=== PATIENT | female | born 1970 | race Caucasian/White ===

== ENCOUNTER 2020-03-06 15:18 | Outpatient (REF) | payer MEDICAID, SELFPAY | END 2020-03-06 15:19 | disposition home or self-care (01) | LOC: HO.LAB 15:18 | PROVIDERS: Visit Provider Internal Medicine | DX: Z20.822 Contact with and (suspected) exposure to COVID-19 (principal) | CPT/HCPCS: 36415; C9803; U0003 ==

== ENCOUNTER 2022-01-20 11:39 | Outpatient (REF) | payer MEDICAID, SELFPAY ==
--- NOTE | ~2022-01-20 | MM_ITS ---
EXAMINATION: MM SCREENING DIGITAL BREAST TOMOSYNTHESIS, BILATERAL CLINICAL INFORMATION: Screening. Asymptomatic. The lifetime risk of breast cancer based on the Tyrer-Cuzick Model is 17%. COMPARISON: Mammography: 11/23/2017, 11/13/2016 TECHNIQUE: Digital breast tomosynthesis is performed in both the craniocaudal and mediolateral oblique views along with computer-aided detection (CAD). Synthesized 2D images are generated from the tomosynthesis. FINDINGS: The breasts are extremely dense, which lowers the sensitivity of mammography (ACR BI-RADS breast composition Category d). There are no significant masses, abnormal calcifications, or other abnormalities. Parenchymal pattern is similar to prior studies. No architectural abnormality. There are multiple bilateral scattered round calcifications similar in distribution. The axilla and skin contours are unremarkable. No significant changes from prior exam. MM/MM tomosynthesis screening BI IMPRESSION: No mammographic evidence of malignancy. ASSESSMENT: BI-RADS 2: Benign RECOMMENDATION: Routine annual mammography screening. This patient's information was entered into a reminder system with a target due date for their next mammogram.
== END 2022-01-20 11:40 | disposition home or self-care (01) ==
LOC: HO.MAMMO 11:39
PROVIDERS: PCP Internal Medicine; Visit Provider Internal Medicine
DX: Z12.31 Encounter for screening mammogram for malignant neoplasm of breast (principal)
CPT/HCPCS: 77063; 77067

== ENCOUNTER → 2022-07-23 10:08 | Outpatient (BNVA) | payer MEDICAID, SELFPAY | PROVIDERS: PCP Internal Medicine; Visit Provider Physician Assistant | DX: Z12.11 Encounter for screening for malignant neoplasm of colon (principal) | CPT/HCPCS: 99202 ==

== ENCOUNTER → 2023-01-29 08:15 | Outpatient (BNV) | payer MEDICAID, SELFPAY | PROVIDERS: PCP Internal Medicine; Visit Provider Radiology Diagnostic Radiology | DX: Z12.31 Encounter for screening mammogram for malignant neoplasm of breast (principal) | CPT/HCPCS: 77063; 77067 ==

== ENCOUNTER 2023-01-29 08:30 | Outpatient (REF) | payer MEDICAID, SELFPAY ==
--- NOTE | ~2023-01-29 | MM_ITS ---
EXAMINATION: MM SCREENING DIGITAL BREAST TOMOSYNTHESIS, BILATERAL CLINICAL INFORMATION: Screening. Asymptomatic. COMPARISON: Mammography: This study is compared with prior exams dating back to 2018. TECHNIQUE: Digital breast tomosynthesis is performed in both the craniocaudal and mediolateral oblique views along with computer-aided detection (CAD). Synthesized 2D images are generated from the tomosynthesis. FINDINGS: The breasts are heterogeneously dense, which may obscure small masses (ACR BI-RADS breast composition Category c). There are no significant masses, abnormal calcifications, or other abnormalities. Bilateral benign calcifications are present. MM/MM tomosynthesis screening BI IMPRESSION: No mammographic evidence of malignancy. ASSESSMENT: BI-RADS BI-RADS 2 - Benign Findings RECOMMENDATION: Routine annual mammography screening. 1 year F/U This examination should not preclude the clinical evaluation of a suspicious palpable abnormality. This patient's information was entered into a reminder system with a target due date for their next mammogram.
== END 2023-01-29 08:31 | disposition home or self-care (01) ==
LOC: HO.MAMMO 08:30
PROVIDERS: PCP Internal Medicine; Visit Provider Internal Medicine
DX: Z12.31 Encounter for screening mammogram for malignant neoplasm of breast (principal)
CPT/HCPCS: 77063; 77067

== ENCOUNTER 2023-02-10 11:21 | Outpatient (REF) | payer MEDICAID, SELFPAY ==
[2023-02-10 13:45] LABS: MANUAL DIFF FLAG NO
[2023-02-10 13:53] LABS: Basophils Absolute Auto 0.1 X10*3/uL (0.0-0.2); Basophils Percent Auto 0.9 % (0-2); Eosinophils Absolute Auto 0.1 X10*3/uL (0.0-0.4); Eosinophils Percent Auto 1.1 % (0-4); Hematocrit 39.8 % (37.0-47.0); Hemoglobin 12.4 g/dl (12.0-16.0); Imm Gran Abs Auto 0.02 X10*3/uL (0.00-0.03); Imm Gran Pct Auto 0.4 % (0.0-0.4); Lymphocytes Absolute Auto 1.7 X10*3/uL (1.2-4.9); Lymphocytes Percent Auto 31.6 % (20-40); Mean Corpuscular HGB Conc 31.2 g/dl (31.0-35.0); Mean Corpuscular Volume 77.1 fL (80.0-98.0); Mean Platelet Volume 12.7 fL (9.4-12.3); Monocytes Absolute Auto 0.4 X10*3/uL (0.1-1.2); Monocytes Percent Auto 6.9 % (2-11); Neutrophils Absolute Auto 3.2 x10*3/uL (2.0-8.3); Neutrophils Percent Auto 59.1 % (45-73); Platelet Count 248 X10*3/uL (160-400); Red Blood Count 5.16 X10*6/uL (4.20-5.50); Red Cell Distribution Width 17.5 % (11.0-16.0); White Blood Count 5.5 X10*3/uL (4.8-10.8)
[2023-02-10 16:18] LABS: Cholesterol 200 mg/dL (<200); HDL Cholesterol 53 mg/dL (>40); LDL Cholesterol Calculated 129 mg/dL (<100); Triglycerides 94 mg/dL (<150)
[2023-02-10 16:55] LABS: Anion Gap 15 (12-20); Blood Urea Nitrogen 13 mg/dL (9-16); Calcium 9.6 mg/dL (8.4-10.2); Carbon Dioxide 24 mmol/L (22-29); Chloride 107 mmol/L (96-108); Estimated Glomerular Filt Rate > 60; Glucose Random 110 mg/dL (60-115); Potassium 4.8 mmol/L (3.3-5.1); Sodium 141 mmol/L (135-145)
[2023-02-10 17:02] LABS: Ferritin 29 ng/mL (10-250); TSH reflex Free T4 1.17 uIU/mL (0.32-4.0); Vitamin D 25-OH Total 12.9 ng/mL (>30)
[2023-02-10 18:11] LABS: Reflex LDLD? No
== END 2023-02-10 11:22 | disposition home or self-care (01) ==
LOC: HO.HHCL 11:21
PROVIDERS: Visit Provider Internal Medicine
DX: N93.8 Other specified abnormal uterine and vaginal bleeding (principal); R03.0 Elevated blood-pressure reading, without diagnosis of hypertension
CPT/HCPCS: 36415; 80048; 80061; 82306; 82728; 84443; 85025

== ENCOUNTER 2023-02-17 11:34 | Outpatient (REF) | payer MEDICAID, SELFPAY | END 2023-02-17 11:35 | disposition home or self-care (01) | LOC: HO.MAMMO 11:34 | PROVIDERS: PCP Internal Medicine; Visit Provider Internal Medicine | DX: R92.8 Other abnormal and inconclusive findings on diagnostic imaging of breast (principal) | CPT/HCPCS: 76641 ==

== ENCOUNTER → 2023-02-17 12:00 | Outpatient (BNV) | payer MEDICAID, SELFPAY | PROVIDERS: PCP Internal Medicine; Visit Provider Radiology Diagnostic Radiology | DX: R92.8 Other abnormal and inconclusive findings on diagnostic imaging of breast (principal) | CPT/HCPCS: 76641 ==

== ENCOUNTER 2023-03-12 08:24 | Day surgery (SDC) | payer MEDICAID, SELFPAY ==
[2023-03-10 14:15] VITALS: BMI 29.7
--- NOTE | 2023-03-11 12:14 | P.CONAN_ITS ---
Documented by User: aMgnolia Morillo NP 03/11/23 12:15 HPI - Anesthesia Eval Consult details Narrative: 53yo F for Colonoscopy No PMHx by GI provider [facility] Active Problems Active Problems: All Active Problems (Updated 07/23/22 @ 10:56 by Nellie Briceno PA-C) Encounter for screening colonoscopy (Acute) Family History Family History Mother Breast CA HTN (hypertension) Social History Social History Household Members: Family Alcohol intake: current Alcohol intake frequency: holidays/special occasions only Patient Tobacco Use Status: Current everyday Tobacco user Advance Directives: No Advance Directives Information Provided: Yes Meds Allergies Allergy/AdvReac Type Severity Reaction Status Date / Time No Known Allergies Allergy Unknown Verified 03/12/23 09:14 Home Medications Medication Instructions Recorded Confirmed Last Taken Type cholecalciferol (vitamin D3) 50 50 mcg PO DAILY 07/16/22 03/12/23 03/11/23 History mcg (2,000 unit) capsule clonazepam 1 mg tablet (Klonopin) 1 mg PO BID 07/16/22 03/12/23 03/11/23 History ibuprofen 600 mg tablet 600 mg PO TID 07/16/22 03/12/23 03/11/23 History lurasidone 120 mg tablet (Latuda) 120 mg PO DAILY 07/16/22 03/12/23 03/11/23 History mirtazapine 15 mg tablet (Remeron) 15 mg PO BEDTIME 07/16/22 03/12/23 03/11/23 History zolpidem 5 mg tablet 5 mg PO BEDTIME PRN Sleep 07/16/22 03/12/23 03/11/23 History Exam Height,Weight and Vital Signs: Height 5 ft 4 in Weight 78.471 kg Pertinent Lab Results Pertinent Lab Results: Laboratory Tests 02/10/23 11:23 Sodium 141 Potassium 4.8 Chloride 107 BUN 13 Creatinine 0.91 Laboratory Tests 02/10/23 11:23 WBC 5.5 Hgb 12.4 Hct 39.8 Plt Count 248 Assessment and Plan Assessment Anesthesia Assessment: Chart Reviewed Documented by User: Yun Webb MD 03/12/23 09:27 PMFSH Family History Family History Mother Breast CA HTN (hypertension) Surgical History History of Problems with Anesthesia: No Social History Social History Household Members: Family Alcohol intake: current Alcohol intake frequency: holidays/special occasions only Patient Tobacco Use Status: Current everyday Tobacco user Advance Directives: No Advance Directives Information Provided: Yes Meds Allergies Allergy/AdvReac Type Severity Reaction Status Date / Time No Known Allergies Allergy Unknown Verified 03/12/23 09:14 Home Medications Medication Instructions Recorded Confirmed Last Taken Type cholecalciferol (vitamin D3) 50 50 mcg PO DAILY 07/16/22 03/12/23 03/11/23 History mcg (2,000 unit) capsule clonazepam 1 mg tablet (Klonopin) 1 mg PO BID 07/16/22 03/12/23 03/11/23 History ibuprofen 600 mg tablet 600 mg PO TID 07/16/22 03/12/23 03/11/23 History lurasidone 120 mg tablet (Latuda) 120 mg PO DAILY 07/16/22 03/12/23 03/11/23 History mirtazapine 15 mg tablet (Remeron) 15 mg PO BEDTIME 07/16/22 03/12/23 03/11/23 History zolpidem 5 mg tablet 5 mg PO BEDTIME PRN Sleep 07/16/22 03/12/23 03/11/23 History Exam Airway Mallampati Class: II TM Dist: >3cm Neck ROM: Full Partial: Upper Loose/Missing/Broken Teeth: Yes and Upper Heart: RRR Lungs: CTA Assessment and Plan Assessment Anesthesia Assessment: Anesthesia Plan Discussed Final Anesthetic Review History of Problems with Anesthesia: No NPO: Yes ASA Class: I Final Preanesthetic Review: Meds/Allgs Chart Reviewed, Consent Obtained/Reviewed and Anes Risks/Benef Reviewed Patient Risk: Low Procedure Risk: Low Anesthetic Plan Anesthetic Plan: MAC: Disposition: Standard PACU
--- NOTE | 2023-03-12 09:04 | MHC.SHP ---
Pre-Procedural Eval Section A Date of Service: 03/12/23 The patient is an INPATIENT: No The History & Physical has been completed within 30 days and I have reviewed it.: No Section B Chief Complaint: Colon cancer screen Relevant Family History (Specify if Yes): No Relevant Social History: Tobacco Use Present Medications: see Short Stay Collaborative assessment Medical History: No relevant PMH History of Previous Operations: No relevant previous surgery Allergies: Allergies Allergy/AdvReac Type Severity Reaction Status Date / Time No Known Allergies Allergy Unknown Verified 07/23/22 10:11 Review of Systems Sugical H&P ROS: Negative: Constitution, Cardiovascular, Respiratory and Gastrointestinal Exam Surgical H&P Exam: Normal: Heart, Normal: Lungs, Normal: Extremities and Normal: Abdomen Plan Diagnosis/Plan: Unchanged I have reviewed the history and physical and performed a pertinent physical examination on my patient. No changes have occurred unless specified. Time Spent With Patient Time: Total time managing care of this patient today ____ minutes.
[2023-03-12 09:20] VITALS: BMI 30.4
[2023-03-12 09:33] VITALS: BP 125/79; PULSE 65; RESP 16; TEMP 36.8; O2SAT 98
[2023-03-12] MEDS: Lactated Ringers 1,000 ML 100 ML IVCONT (09:47)
--- NOTE | 2023-03-12 10:38 | P.OP_ITS ---
Operative Note Operative Note Date of Service: 03/12/23 Narrative: COLONOSCOPY TILL CECUM WITH BIOPSIES Pre-op diagnosis: Colon cancer screening (First colonoscopy) Post-op diagnosis:? Colon polyps, diverticulosis Endoscopist:? Rosa Maria Gross MD Anesthesia:?MAC Consent: Indications for the procedure and potential complications of bleeding, perforation, reaction to medications and missed diagnosis were discussed with the patient and informed consent was obtained. Instrument: Olympus PCF H 190 L variable stiffness pediatric colonoscope Monitoring: Vital signs and clinical assessment, intermittent blood pressure monitoring, continuous EKG monitoring, Pulse oximetry and Carbon Dioxide monitoring were done throughout the procedure. Please see anesthesia flowsheet. Colon withdrawl time was 19 minutes. Procedure: The patient was placed in the left lateral decubitis position and pre-procedure medications were administered. After a digital rectal examination of the ano-rectum, the video colonoscope was inserted into the rectum and advanced through the colon to the cecum. The colonoscope was slowly withdrawn in a retrograde panoramic fashion and the colon mucosa was carefully examined including a retroflexed view of the rectum. Findings and interventions are described below. Procedure Difficulty: Without difficulty Findings: Terminal Ileum: Not evaluated Cecum: Normal Ascending Colon: Normal Transverse Colon: Normal Descending Colon: Normal Sigmoid Colon: A 7-8 mm diminutive appearing polyp - removed with a cold biopsy. Moderate diverticulosis Rectum: A few 3-4 mm diminutive appearing polyps - 1 removed with a cold biopsy Ano-rectum: Normal Colon preparation: Good after some irrigation [place] Bowel Preparation Scale Right colon; 3 Transverse colon: 3 Left colon; 3 (0 = Unprepared colon segment with mucosa not seen due to solid stool that cannot be cleared. 1 = Portion of mucosa of the colon segment seen, but other areas of the colon segment not well seen due to staining, residual stool and/or opaque liquid. 2 = Minor amount of residual staining, small fragments of stool and/or opaque liquid, but mucosa of colon segment seen well. 3 = Entire mucosa of colon segment seen well with no residual staining, small fragments of stool or opaque liquid) Impression and Post Procedure Diagnosis: Colonoscopy Findings: Two small polyps removed Moderate diverticulosis seen in the sigmoid colon Plan: I will send a letter with pathology results Repeat Colonoscopy interval based on path results - in 5 years if polyps are adenomatous and 10 years if polyps are hyperplastic. Above findings were reviewed with the patient and colon polyps and diver ticulosis handouts were given in the discharge area
[2023-03-12 10:40] VITALS: BP 116/62; PULSE 61; RESP 16; TEMP 36.1; O2SAT 100
[2023-03-12 10:55] VITALS: BP 126/71; PULSE 65; RESP 16; TEMP 36.1; O2SAT 98
== END 2023-03-12 11:16 | disposition home or self-care (01) ==
PROVIDERS: PCP Internal Medicine; Visit Provider Internal Medicine Gastroenterology
PROC: 0DJD8ZZ Inspection of Lower Intestinal Tract, Via Natural or Artificial Opening Endoscopic (ICD-10-PCS; CPT 45378; principal; 2023-03-12 10:20)
DX: Z12.11 Encounter for screening for malignant neoplasm of colon (principal); K63.5 Polyp of colon; K62.1 Rectal polyp; K57.30 Diverticulosis of large intestine without perforation or abscess without bleeding; Z79.1 Long term (current) use of non-steroidal anti-inflammatories (NSAID); Z79.899 Other long term (current) drug therapy; F17.210 Nicotine dependence, cigarettes, uncomplicated
CPT/HCPCS: 45380; 88305; J2704

== ENCOUNTER → 2023-03-12 08:24 | Outpatient (BNV) | payer MEDICAID, SELFPAY | PROVIDERS: PCP Internal Medicine; Visit Provider Internal Medicine Gastroenterology | DX: Z12.11 Encounter for screening for malignant neoplasm of colon (principal); K63.5 Polyp of colon; K57.30 Diverticulosis of large intestine without perforation or abscess without bleeding | CPT/HCPCS: 45380 ==

== ENCOUNTER 2023-05-07 18:03 | Outpatient (REF) | payer MEDICAID, SELFPAY ==
[2023-05-08 16:47] LABS: C. trachomatis RNA TMA NOT DETECTED (NOT DETECTED); N. gonorrhoeae RNA TMA NOT DETECTED (NOT DETECTED)
[2023-05-13 05:48] LABS: HPV mRNA E6/E7 rflx Not Detected (Not Detected)
== END 2023-05-07 18:04 | disposition home or self-care (01) ==
LOC: HO.HHCLNP 18:03
PROVIDERS: Visit Provider Internal Medicine
DX: Z01.419 Encounter for gynecological examination (general) (routine) without abnormal findings (principal)
CPT/HCPCS: 36415; 81513; 87491; 87591; 87624; 88142

== ENCOUNTER 2023-06-28 13:02 | Outpatient (REF) | payer MEDICAID, SELFPAY | END 2023-06-28 13:03 | disposition home or self-care (01) | LOC: HO.LNP 13:02 | PROVIDERS: PCP Internal Medicine; Visit Provider Obstetrics & Gynecology | DX: N84.1 Polyp of cervix uteri (principal) | CPT/HCPCS: 57500; 88305; 99202 ==

== ENCOUNTER 2023-06-28 13:02 | Outpatient (AMB) | payer MEDICAID, SELFPAY ==
--- NOTE | 2023-06-28 13:12 | A.OFFVIS_ITS ---
Vital Signs 06/28/23 13:13 Height 5 ft 4 in Weight 176 lb 5.917 oz BMI 30.3 BP 126/82 Intake Visit Reasons: Entry Level Finance, Endocervical Polyp/30 min Fermenter Wine Required: Yes Fermenter Wine Language: Confectionery Maker Name: Alessia MARR Information Interpreted: non-clinical & clinical Management Trainee Program Stores: Management Trainee Program Stores Present (Alessia MARR) Accompanied by: Daughter Allergies No Known Allergies Allergy (Unknown, Verified 06/28/23 13:16) Post menopausal: Yes HPI Comments Details: Presenting referred from PCP regarding endocervical polyp is seen that was identified incidentally on pelvic exam. The patient has no symptoms, no pelvic pain, vaginal bleeding or other concerns. Last co testing done in 05/08 was negative PFSH Family History Mother Breast CA HTN (hypertension) Social History Household Members: Family Alcohol intake: current Alcohol intake frequency: holidays/special occasions only Patient Tobacco Use Status: Never used Tobacco Review of Systems Const All systems reviewed & are unremarkable except as noted in HPI and below Physical Exam Vital Signs: Last Vital Signs BP 126/82 06/28/23 13:13 BMI result Body Mass Index 30.3 General: Yes no CVA tenderness External Female Exam: normal external appearance and normal appearance of the urethra Speculum Exam - Vagina: normal appearance of the vagina, normal palpation, no lesions and no masses Speculum Exam - Cervix: normal appearance of the cervix, normal palpation, no lesions, no masses, nontender and Other cervical findings present (2 cm endocervical polyp) Bimanual exam- vagina & uterus: normal bimanual exam, normal palpation, uterine size normal, normal palpation, uterine shape normal, No Cervical tenderness present and non-tender Bimanual Exam- Adnexa, other: normal adnexae Back/Spine/Pelvis Back: no CVA tenderness Office Procedures INFORMATION SECURITY ASSOCIATE Biopsy Before the procedure was started, discussed with the patient the procedure technique, alternatives & all the risks associated with the procedure including but not limited to: bleeding , infection, uterine perforation, injury to bladder, vessels, bowels, possible need for transfusion with all its risks, and others. All questions were answered, the patient verbalized understanding and signed the consent. Urine test done in the office was negative Using a long Linette Clamp the endocervical polyp was grasped and twisted around till it came off, hemostasis was secured using pressure. The patient tolerated the procedure well. Instructions were given to the patient to call if bleeding, temp>100.4 occur. The patient verbalized understanding and agreed with the plan. This note was generated with a voice recognition program. Some errors may have been overlooked during the review of this note. Sometimes these errors may affect the content or meaning of a given sentence. 61689-Gtcrxm of Cervix Procedure code (CPT) selection complete Assessment & Plan Assessment & Plan (1) Endocervical polyp: Code(s): N84.1 - Polyp of cervix uteri Category: Medical Plan: Discussed with the patient the finding on pelvic exam, endocervical polyp, recommended endocervical polypectomy. Procedure done, see note Orders: Orders AMB INFORMATION SECURITY ASSOCIATE Biopsy Today N84.1 - Polyp of cervix uteri Coding Level of Care Code New Pt Level 3 (26486) Procedure Only Diagnoses Endocervical polyp N84.1 CPT Codes INFORMATION SECURITY ASSOCIATE Biopsy - CPT: 42679-[place] of Cervix ([id number])
[2023-06-28 13:13] VITALS: BP 126/82; BMI 30.3
== END 2023-06-28 13:27 | disposition home or self-care (01) ==
PROVIDERS: PCP Internal Medicine; Visit Provider Obstetrics & Gynecology
DX: N84.1 Polyp of cervix uteri (principal)
CPT/HCPCS: 57500; 99203

== ENCOUNTER 2023-08-11 11:31 | Outpatient (AMB) | payer MEDICAID, SELFPAY ==
--- NOTE | 2023-08-11 11:35 | A.OFFVIS_ITS ---
Vital Signs 08/11/23 11:45 Height 5 ft 4 in Weight 176 lb 5.917 oz BMI 30.3 Intake Visit Reasons: Biopsy follow up Business Analytics Manager Required: Yes Business Analytics Manager Language: Product Builder Services: Business Analytics Manager Present Business Analytics Manager Name: Alessia MARR Information Interpreted: non-clinical & clinical Accompanied by: Daughter Allergies No Known Allergies Allergy (Unknown, Verified 08/11/23 11:45) Post menopausal: Yes HPI Comments Details: The patient is presenting after endocervical polypectomy. The patient has no complaints, no vaginal bleeding, no feverishness chills or abdominal pain. The pathology report showed the following: Endocervix, polypectomy: Inflamed endocervical polyp; no atypia present PFSH Family History Mother Breast CA HTN (hypertension) Social History Household Members: Family Alcohol intake: current Alcohol intake frequency: holidays/special occasions only Patient Tobacco Use Status: Never used Tobacco Review of Systems Const All systems reviewed & are unremarkable except as noted in HPI and below Reports as per HPI and Reports no additional complaints GI Reports no additional complaints Reports no additional complaints Physical Exam Vital Signs: BMI result Body Mass Index 30.3 Assessment & Plan Assessment & Plan (1) Endocervical polyp: Comment: Status post polypectomy Code(s): N84.1 - Polyp of cervix uteri Category: Medical Plan: Discussed with the patient the results the pathology, the patient was reassured. Instructions given the patient to call in case of any future vaginal bleeding will proceed with endometrial sampling. All questions answered, the patient verbalized understanding Coding Level of Care Code Est Pt Level 3 (81068) Diagnoses Endocervical polyp N84.1
[2023-08-11 11:45] VITALS: BMI 30.3
== END 2023-08-11 14:35 | disposition home or self-care (01) ==
LOC: HO.HWS 11:31
PROVIDERS: PCP Internal Medicine; Visit Provider Obstetrics & Gynecology
DX: N84.1 Polyp of cervix uteri (principal)
CPT/HCPCS: 99213

== ENCOUNTER → 2023-08-11 11:31 | Outpatient (BNVA) | payer MEDICAID, SELFPAY | PROVIDERS: PCP Internal Medicine; Visit Provider Obstetrics & Gynecology | DX: N84.1 Polyp of cervix uteri (principal) | CPT/HCPCS: 99212 ==

== ENCOUNTER 2023-08-25 09:38 | Outpatient (REF) | payer MEDICAID, SELFPAY ==
--- NOTE | ~2023-08-25 | US_ITS ---
EXAMINATION: US DIAGNOSTIC ULTRASOUND BREAST, RIGHT CLINICAL INFORMATION: 6 month follow-up probably benign complicated cyst right breast 1:00 axis, 5 cm from the nipple.. COMPARISON: 02/17/2023 right breast ultrasound. TECHNIQUE: Ultrasound of the breast is performed with real-time may scale imaging and color Doppler. FINDINGS: Within the 1:00 axis of the right breast, 5 cm from the nipple, there is a complex cyst or possibly a small mass measuring 1.1 x 0.4 x 0.9 cm, either a benign fibroadenoma or variant, or a mildly complicated cyst. A few scant internal echoes are noted. No internal color Doppler flow. Finding is wider than tall. No surrounding parenchymal distortion or fat changes. This is stable and unchanged when compared with 02/17/2023. Patient has known fibrocystic breasts. US/US breast RT limited mamm only IMPRESSION: Stable 1.1 x 0.4 x 0.9 cm complicated cyst left breast 1:00 axis, 5 cm from the nipple. This remains probably benign. Recommend six-month follow-up targeted right breast ultrasound. ASSESSMENT: BI-RADS 3 - Probably benign finding(s) - 6 month follow-up suggested RECOMMENDATION: 6 Month F/U This patient's information was entered into a reminder system with a target due date for their next mammogram.
== END 2023-08-25 09:39 | disposition home or self-care (01) ==
LOC: HO.MAMMO 09:38
PROVIDERS: PCP Internal Medicine; Visit Provider Internal Medicine
DX: R92.2 Inconclusive mammogram (principal)
CPT/HCPCS: 76642

== ENCOUNTER → 2023-08-25 11:00 | Outpatient (BNV) | payer MEDICAID, SELFPAY | PROVIDERS: PCP Internal Medicine; Visit Provider Radiology Diagnostic Radiology | DX: N60.01 Solitary cyst of right breast (principal) | CPT/HCPCS: 76642 ==

== ENCOUNTER 2023-12-16 10:09 | Outpatient (REF) | payer MEDICAID, SELFPAY ==
[2023-12-16 11:40] LABS: Alanine Aminotransferase 48 U/L (0-31); Albumin Level 4.3 g/dL (3.5-5.0); Alkaline Phosphatase 95 U/L (39-117); Anion Gap 15 (12-20); Aspartate Amino Transferase 52 U/L (5-31); Bilirubin Total 0.5 mg/dL (0.0-1.0); Blood Urea Nitrogen 13 mg/dL (9-16); Calcium 9.9 mg/dL (8.4-10.2); Carbon Dioxide 25 mmol/L (22-29); Chloride 102 mmol/L (96-108); Cholesterol 191 mg/dL (<200); Estimated Glomerular Filt Rate > 60; Glucose Random 236 mg/dL (60-115); HDL Cholesterol 39 mg/dL (>40); LDL Cholesterol Calculated 128 mg/dL (<100); Potassium 3.4 mmol/L (3.3-5.1); Sodium 139 mmol/L (135-145); Triglycerides 124 mg/dL (<150)
[2023-12-16 12:01] LABS: Reflex LDLD? No; Vitamin D 25-OH Total 29.5 ng/mL (>30)
== END 2023-12-16 10:10 | disposition home or self-care (01) ==
LOC: HO.HHCL 10:09
PROVIDERS: Visit Provider Internal Medicine
DX: R03.0 Elevated blood-pressure reading, without diagnosis of hypertension (principal); D50.0 Iron deficiency anemia secondary to blood loss (chronic); N93.8 Other specified abnormal uterine and vaginal bleeding
CPT/HCPCS: 36415; 80053; 80061; 82306; 84443

== ENCOUNTER 2023-12-31 11:28 | Outpatient (REF) | payer MEDICAID, SELFPAY ==
[2023-12-31 13:45] LABS: HBc Num1 0.28 S/CO (0.00-0.79); HBsAGNum1 0.31 S/CO (0.00-0.99); HIV AB/AG Nonreactive (Nonreactive); HIV Num 1 0.05 S/CO (0.00-0.99); Hepatitis B Core Antibody Nonreactive (Nonreactive); Hepatitis B Surface Antigen Negative (Negative); ~HepC Num1 0.13 S/CO (0.00-0.79); ~Hepatitis A Antibody IgM Nonreactive (Nonreactive); ~Hepatitis B Surface Antibody REACTIVE (Nonreactive); ~Hepatitis C Antibody Nonreactive (Nonreactive)
[2023-12-31 13:52] LABS: Alanine Aminotransferase 48 U/L (0-31); Albumin Level 4.2 g/dL (3.5-5.0); Alkaline Phosphatase 94 U/L (39-117); Aspartate Amino Transferase 52 U/L (5-31); Bilirubin Direct 0.2 mg/dL (0.0-0.5); Bilirubin Total 0.5 mg/dL (0.0-1.0); Total Protein 7.6 g/dL (6.5-8.0)
[2023-12-31 14:47] LABS: Gamma Glutamyl Transpeptidase 97 U/L (7-33)
== END 2023-12-31 11:29 | disposition home or self-care (01) ==
LOC: HO.HHCL 11:28
PROVIDERS: Visit Provider Internal Medicine
DX: Z11.4 Encounter for screening for human immunodeficiency virus [HIV] (principal); R74.8 Abnormal levels of other serum enzymes
CPT/HCPCS: 36415; 80076; 82977; 86704; 86706; 86709; 86803; 87340; 87389

== ENCOUNTER 2024-01-10 10:31 | Outpatient (REF) | payer MEDICAID, SELFPAY ==
--- NOTE | ~2024-01-10 | CT_ITS ---
EXAMINATION: CT HEAD WITHOUT CONTRAST CLINICAL INFORMATION: Blurred vision TECHNIQUE: Contiguous axial imaging was performed from the skull base to vertex without intravenous administration of contrast. All CT exams at this location are performed using dose optimization techniques as appropriate to a performed exam including at least one of the following: * Automated exposure control * Adjustment of the mA and/or kV according to patient size (this includes techniques or standardized protocols for targeted exams where dose is matched to indication / reason for exam; i/e/ extremities or head) * Use of iterative reconstructive technique DLP: 705 mGy-cm COMPARISON: None. FINDINGS: There is no evidence of acute intracranial hemorrhage, acute large vessel infarct, midline shift or mass effect. The may-white differentiation is preserved. The ventricles and sulci are within normal limits in size and configuration. There is no evidence of hydrocephalus. There are no extraaxial collections. Osseous structures are intact. Paranasal sinuses and mastoid air cells are well aerated. CT/CT head/brain wo IV con IMPRESSION: Unremarkable non-contrast CT of the brain. Electronically signed by: Dorian Hernandez MD 01/10/2024 07:57 PM EST SATHYA
== END 2024-01-10 10:32 | disposition home or self-care (01) ==
LOC: HO.CT 10:31
PROVIDERS: PCP Internal Medicine; Visit Provider Internal Medicine
DX: R03.0 Elevated blood-pressure reading, without diagnosis of hypertension (principal); H53.8 Other visual disturbances
CPT/HCPCS: 70450

== ENCOUNTER 2024-11-20 12:22 | Outpatient (REF) | payer MEDICAID, SELFPAY ==
--- OUTSIDE RECORDS SUMMARY | 2024-11-20 11:30 | XMS_ITS | Encounter Summary ---
Author Organization [employer] Address [address] [facility] [address] [place] [address] Care Team Providers Care Cattle Brander Name Role Phone Payton Garza MD Primary Care Provider + Encounter Details Date Type Department Care Team (Late st Contact Info) Description 11/20/2024 11:30 AM EDT Office Visit [facility] [address] [place] [address] Payton Garza MD [address] [place] [address] Lipoma of left lower extremity (Primary Dx); Type 2 diabetes mellitus without complication, without long-term current use of insulin (HCC); Elevated liver enzymes Social History Tobacco Use Types Packs/Day Years Used Date Smoking Tobacco: Never Passive Smoke Exposure: Never Smokeless Tobacco: Never Alcohol Use Standard Drinks/Week Comments Never 0 (1 standard drink = 0.6 oz pur e alcohol) Depression Answer Date Recorded Patient Health Questionnaire-9 Score 20 11/20/2024 Patient Health Questionnaire-9 Score 20 11/20/2024 Last PHQ-9: Questionnaire Data Not on file 1 Housing Stability Answer Date Recorded What is your housing situation today? I have ana rosa gamboa 11/20/[address] you li ve. Do you have problems with any of the following? None of the above 11/20/2024 Food Insecurity Answer Date Recorded Within the past 12 months, y ou worried that your food would run out before you got money to buy more: Never True 2024 Within the past 12 months,th e food you bought just didn't last and you didn't have enough money to get more: Sometimes True 11/20/2024 Transportation Answer Date Recorded In the past 12 months, has l ack of transportation kept you from medical appts, meetings, work or from getting things needed for daily living? No 11/20/2024 Utilities Answer Date Recorded In the past 12 months, has t he electric, gas, oil or water company threatened to shut off services in your home? No 11/20/2024 Depression Answer Date Recorded Patient Health Questionnaire-2 Score 5 11/20/2024 Internet Access Answer Date Recorded Internet Access Q1 Yes 11/20/2024 Internet Access Q2 Not on file 11/20/2024 Comments No Sex and Gender Information Value Date Recorded Sex Assigned at Female 12/15/2021 10:16 AM EDT Legal Sex Female 10:16 AM EDT Gender Identity Female 12/15/2021 10:16 AM EDT Sexual Orientation Straight 12/15/2021 10 :16 AM EDT documented as of this encounter Last Filed Vital Signs Vital Sign Reading Time Taken Comments Blood Pressure 132/82 11/20/2024 11:38 AM EDT Pulse 86 11/20/2024 11:38 AM EDT Temperature 36.5 C (97.7 F) 11/20/2024 11:38 AM EDT Respiratory Rate 24 11/20/2024 11:38 AM EDT Oxygen Saturation - - Inhaled Oxygen Concentration - - Weight 84.6 kg (186 lb 9.6 oz) 11/20/2024 11:38 AM EDT Height 162.6 cm (5' 4 ) 11/20/2024 11:38 AM EDT Body Mass Index 32.03 11/20/2024 11:38 AM EDT documented in this encounter Functional Status * Over the past 2 weeks, how often have you been bothered by any of the following problems? Question Answer Date of Assessment Author Patient Health Questionnaire -2 Score 5 11/20/2024 12:44 PM EDT Mikki Parra MA * Little interest or pleasure in doing things Answer Date of Assessment Author More than half the days 11/20/2024 12:44 PM EDT Mikki Parra MA * Feeling down, depressed, or hopeless Answer Date of Assessment Author Nearly every day 11/20/2024 12:44 PM EDT Mikki Parra MA * Trouble falling or staying asleep, or sleeping too much Answer Date of Assessment Author Nearly every day 11/20/2024 12:44 PM EDT Mikki Parra MA * Feeling tired or having little energy Answer Date of Assessment Author More than half the days 11/20/2024 12:44 PM EDT Mikki Parra MA * Poor appetite or overeating Answer Date of Assessment Author More than half the days 11/20/2024 12:44 PM EDT Mikki Parra MA * Feeling bad about yourself - or that you are a failure or have let yourself or your family down Answer Date of Assessment Author More than half the days 11/20/2024 12:44 PM EDT Mikki Parra MA * Trouble concentrating on things, such as reading the newspaper or watching television Answer Date of Assessment Author More than half the days 11/20/2024 12:44 PM EDT Mikki Parra MA * Moving or speaking so slowly that other people could have noticed? Or the opposite - being so fidgety or restless that you have been moving around a lot more than usual. Answer Date of Assessment Author More than half the days 11/20/2024 12:44 PM EDT Mikki Parra MA * Thoughts that you would be better off or hurting yourself in some way Answer Date of Assessment Author More than half the days 11/20/2024 12:44 PM EDT Mikki Parra MA * Patient Health Questionnaire-9 Score Answer Date of Assessment Author 20 11/20/2024 12:44 PM EDT Mikki Parra MA * How difficult have these problems made it for you to do your work, take care of things at home, or get along with other people? Answer Date of Assessment Author Extremely difficult 11/20/2024 12:44 PM EDT Mikki Diaz MA documented as of this encounter Plan of Treatment Upcoming Encounters Date Type Department Care Team (Late st Contact Info) Description 01/26/2025 11:15 AM EST Office Visit [facility] [address] [place] [address] Payton Garza MD [address] [place] [address] 03/07/2025 11:00 AM EST Office Visit [facility] [address] [place] [address] aMry Bauer, OD [address] [place] [address] documented as of this encounter Procedures Procedure Name Priority Date/Time Associated Diagnosis Comments VITAMIN D,25-OH,TOTAL,IA Routine 11/20/2024 12:28 PM EDT Type 2 diabetes mellitus without complication, without long-term current use of insulin (HCC) TSH W/REFLEX TO FT4 Routine 11/20/2024 1 2:28 PM EDT Type 2 diabetes mellitus without complication, without long-term current use of insulin ([facility]) LIPID PANEL WITH REFLEX TO DIRECT LDL Routine 11/20/2024 12:28 PM EDT Type 2 diabetes mellitus without complication, without long-term current use of insulin ([facility]) ALBUMIN, RANDOM URINE W/CREATININE Routine 11/20/2024 12:28 PM EDT Type 2 diabetes mellitus without complication, without long-term current use of insulin (HCC) COMPREHENSIVE METABOLIC PANEL Routine 11/20/2024 12:28 PM EDT Type 2 diabetes mellitus without complication, without long-term current use of insulin ([facility]) POCT GLYCATED HEMOGLOBIN, TOTAL Routine 11/20/2024 11:41 AM EDT Type 2 diabetes mellitus without complication, without long-term current use of insulin ([facility]) POCT GLUCOSE Routine 11/20/2024 11:41 AM EDT Type 2 diabetes mellitus without complication, without long-term current use of insulin ([facility]) documented in this encounter Results * Vitamin D, 25-Hydroxy, Total, Immunoassay (11/20/2024 12:28 PM EDT) Vitamin D 25-OH Total 37.7 >30 ng/mL [facility] Comment: Health Based Reference Values*< 20 ng/mL Bipqodqhu11-18 ng/mL Insufficient> 30 ng/mL Sufficient*Michelle DUPREE. N Engl J Med. 2007;357:266-280There is no well-established upper level of normal vitamin Dlevels. Some laboratories use 50 ng/mL as an upper limit ofnormal. However, toxicity is patient-dependent and may occurat any level. Careful correlation with the patient'spresentation is necessary and, if there is concern forvitamin D toxicity, treatment should be consideredirrespective of the serum level.Care must be taken in interpreting Vitamin D results fromdifferent laboratories and methodologies. Published datademonstrated that results from patients undergoinghemodialysis may show a negative bias when tested withvarious automated 25-OH vitamin D assays when compared toLC-MS/MS.When testing samples from patients whose predominant form ofVitamin D is Vitamin D2, such as patients receiving VitaminD2 supplementation, results that are subtherapeutic shouldbe confirmed with another method such as LC-MS/MS. Blood 11/20/2024 12:2 8 PM EDT 11/20/2024 1:24 PM EDT us Payton Garza MD LAB BLOOD ORDERABLES Fin al Result Performing Organization Address City/[facility]/ZIP Co de Phone Number [facility] [address] [place] [phone] * TSH with Reflex to Free T4 (11/20/2024 12:28 PM EDT) TSH reflex Free T4 0.85 0.32 - 4.0 uIU/mL [facility] Blood 11/20/2024 12:2 8 PM EDT 11/20/2024 1:24 PM EDT Payton Garza MD LAB BLOOD ORDERABLES Fin al Result [facility] [address] [place] [phone] * (ABNORMAL) Comprehensive Metabolic Panel (11/20/2024 12:28 PM EDT) Sodium 142 135 - 145 mmol/L [facility] Potassium 3.8 3.3 - 5.1 mmol/L [facility] Chloride 106 96 - 108 mmol/L [facility] Carbon Dioxide 25 22 - 29 mmol/L [facility] Anion Gap 15 12 - 20 [facility] Urea Nitrogen (BUN) 13 9 - 16 mg/dL [facility] Creatinine, Serum 0.77 0.5 - 1.4 mg/dL [facility] Estimated Glomerular Filt Rate >60 [facility] Comment:Chronic Kidney Disea se: Estimated GFR < 60 mL/min/1.02p9Dqonla Kidney Disease: Estimated GFR < 15 mL/min/1.73m2 Glucose 128(H) 60 - 115 mg/dL [facility] Calcium 9.2 8.4 - 10.2 mg/dL [facility] Bilirubin, Total 0.3 0.0 - 1.0 mg/dL [facility] Aspartate Amino Transferase 42(H) 5 - 31 U/L [facility] Alanine Aminotransferase 48(H) 0 - 31 U/L [facility] Total Protein 7.8 6.5 - 8.0 g/dL [facility] Albumin Level 4.6 3.5 - 5.0 g/dL [facility] Alkaline Phosphatase 71 39 - 117 U/L [facility] Blood Venous blood specimen / Unknown 11/20/2024 12:28 PM EDT 11/20/2024 1:24 PM EDT us Payton Garza MD LAB BLOOD ORDERABLES Fin al Result [facility] [address] [place] [phone] * (ABNORMAL) Lipid Panel with Reflex to Direct LDL (11/20/2024 12:28 PM EDT) Triglycerides 108 <150 mg/dL [facility] Comment:Desirable Triglyceri de: less than 150 mg/dLBorderline High Triglyceride 150-199 mg/dLHigh Triglyceride: 200-499 mg/dLVery High Triglyceride: greater than or equal to 5OO mg/dL Cholesterol 212(H) <200 mg/dL [facility] Comment:Desirable Cholestero l: less than 200 mg/dLBorderline High Cholesterol: 200-239 mg/dLHigh Cholesterol: greater than 239 mg/dL LDL Cholesterol Calculated 149(H) <100 mg/dL [facility] Comment:Desirable LDL: less than 100 mg/dLNear Optimal/Above Optimal LDL: 110- 129 mg/dLBorderline High LDL: 130-159 mg/dLHigh LDL: 160-189 mg/dLVery High LDL: greater than or equal to 190 mg/dL HDL Cholesterol 42 >40 mg/dL [facility] Comment:Desirable HDL: great er than 40 mg/dL Note: This HDL assay may give artificially low results in patients with liver disease. Blood 11/20/2024 12:2 8 PM EDT 11/20/2024 1:24 PM EDT us Payton Garza MD LAB BLOOD ORDERABLES Fin al Result Performing Organization Address City/State/[facility] Co de Phone Number [facility] [address] [place] [phone] * Albumin, Random Urine W/Creatinine (11/20/2024 12:28 PM EDT) Creatinine, Urine 218.02 mg/dL [facility] Microalbumin Urine 14.0 mg/L [facility] Microalbum Creatinine Ratio Ur 6.4 <30 ug/mg cr [facility] Comment:Albumin/Creatinine R atio Reference Ranges: Normal: < 30 ug/mg creatinine Microalbuminuria: 30 - 300 ug/mg creatinineClinical Albuminuria: > 300 ug/mg creatinine Urine (Urine, Random) 11/20/2024 12:28 PM EDT 11/20/2024 1:16 PM EDT us Payton Garza MD LAB URINE ORDERABLES Fin al Result [facility] [address] [place] [phone] * (ABNORMAL) POCT Hgb A1c (11/20/2024 11:41 AM EDT) Hemoglobin A1C 6.9(A) 4.0 - 5.7 % QC Media Lot # [id number] Lot# Expiration Date 5, Blood 11/20/2024 11:4 1 AM EDT us aPyton Garza MD POINT OF CARE TEST ENTER /EDIT ORDERABLES Final Result * POCT Glucose (11/20/2024 11:41 AM EDT) Glucose Blood, POC 130 60 - 200 mg/dL Comment:fasting since last n ight QC Media Lot # [id number] Lot# Expiration Date 3, Blood Capillary blood specimen / Unknown 11/20/2024 11:41 AM EDT us Payton Garza MD POINT OF CARE TEST ENTER /EDIT ORDERABLES Final Result documented in this encounter Visit Diagnoses Diagnosis Lipoma of left lower extremity- Primary Type 2 diabetes mellitus without complication, without long-term current use of insulin (HCC) Elevated liver enzymes Other nonspecific abnormal serum enzyme levels documented in this encounter Additional Health Concerns Assessment Noted Time PHQ-9 Depression Total Score: 20 025 12:44 PM EDT documented as of this encounter Care Teams Cattle Brander Relationship Specialty Start Date End Date Payton Garza MD [address] [place] [phone] PCP - General Family Medicine 09/30/16 documented as of this encounter
[2024-11-20 13:54] LABS: Alanine Aminotransferase 48 U/L (0-31); Albumin Level 4.6 g/dL (3.5-5.0); Alkaline Phosphatase 71 U/L (39-117); Anion Gap 15 (12-20); Aspartate Amino Transferase 42 U/L (5-31); Blood Urea Nitrogen 13 mg/dL (9-16); Calcium 9.2 mg/dL (8.4-10.2); Carbon Dioxide 25 mmol/L (22-29); Chloride 106 mmol/L (96-108); Cholesterol 212 mg/dL (<200); Estimated Glomerular Filt Rate > 60; HDL Cholesterol 42 mg/dL (>40); Potassium 3.8 mmol/L (3.3-5.1); Sodium 142 mmol/L (135-145); Total Protein 7.8 g/dL (6.5-8.0); Triglycerides 108 mg/dL (<150)
[2024-11-20 14:19] LABS: Microalbum/Creatinine Ratio Ur 6.4 ug/mg cr (<30)
[2024-11-20 14:35] LABS: Reflex LDLD? No
--- OUTSIDE RECORDS SUMMARY | 2024-11-20 14:42 | XMS_ITS | Encounter Summary ---
Author Organization [employer] Address [address] [facility] [address] [place] [address] Care Team Providers Care Secondary Market Manager Name Role Phone Payton Garza MD Primary Care Provider + Encounter Details Date Type Department Care Team (Latest Contact Info) Description 11/20/2024 Travel Social History Tobacco Use Types Packs/Day Years [...] AM EDT documented as of this encounter Functional Status * Over the [...] Description 01/26/2025 11:15 AM EST Office Visit [facility] [address] [place] [address] Payton Garza MD [address] [place] [address] 03/07/2025 11:00 AM EST Office Visit [facility] OPTOMETRY [address] [place] [address] Juancarlos, Mary, OD [address] [place] [address] documented as of this encounter Visit Diagnoses Not on filedocumented in this encounter Additional Health Concerns Assessment Noted Time PHQ-9 Depression Total Score: 025 12:44 PM EDT documented as of this encounter Care Teams Secondary Market Manager Relationship Specialty Start Date End Date Payton Garza MD [address] [place] [address] PCP - General Family Medicine 09/30/16 documented as of this encounter
--- OUTSIDE RECORDS SUMMARY | 2024-11-20 14:42 | XMS_ITS | Encounter Summary ---
Author Organization [employer] Address [address] [facility] [place] [address] Care Team Providers Care Instrumental Musician Name Role Phone Payton Garza MD Primary Care Provider + Encounter Details Date Type Department Care Team (Late st Contact Info) Description 05/31/2024 Orders Only [facility] [address] [place] [address] ProviderGenesis MD Social History Tobacco Use Types Packs/Day Years Used Date Smoking Tobacco: Never Passive Smoke Exposure: Never Smokeless Tobacco: Never Alcohol Use Standard Drinks/Week Comments Never 0 (1 standard drink = 0.6 oz pur e alcohol) Depression Answer Date Recorded Patient Health Questionnaire-9 Score 0 02/10/2023 Patient Health Questionnaire-9 Score 0 02/10/2023 Last PHQ-9: Questionnaire Data Not on file 1 04/13/2022 Housing Stability Answer Date Recorded What is your housing situation today? I have ana rosafrancisco gamboa 02/10/[address] you li ve. Do you have problems with any of the following? None of the above 02/10/2023 Food Insecurity Answer Date Recorded Within the past 12 months, y ou worried that your food would run out before you got money to buy more: Never True 02/10/2023 Within the past 12 months,th e food you bought just didn't last and you didn't have enough money to get more: Never True Transportation Answer Date Recorded In the past 12 months, has l ack of transportation kept you from medical appts, meetings, work or from getting things needed for daily living? No 02/10/2023 Utilities Answer Date Recorded In the past 12 months, has t he electric, gas, oil or water company threatened to shut off services in your home? No 02/10/2023 Depression Answer Date Recorded Patient Health Questionnaire-2 Score 0 02/10/2023 Comments No Sex and Gender Information Value Date Recorded Sex Assigned at Female 12/15/2021 10:16 AM EDT Legal Sex Female 10:16 AM EDT Gender Identity Female 12/15/2021 10:16 AM EDT Sexual Orientation Straight 12/15/2021 10 :16 AM EDT documented as of this encounter Plan of Treatment Upcoming Encounters Date Type Department Care Team (Late st Contact Info) Description 01/26/2025 11:15 AM EST Office Visit [facility] [address] [place] [address] Payton Garza MD [address] [place] [address] 03/07/2025 11:00 AM EST Office Visit [facility] OPTOMETRY [address] [place] [address] Mary Bauer, OD [address] [place] [address] documented as of this encounter Procedures Procedure Name Priority Date/Time Associated Diagnosis Comments MAMMOGRAPHY Routine 02/25/2024 9:20 AM EST MAMMOGRAPHY Routine 11/15/2023 9:16 AM EDT documented in this encounter Results * Mammography (02/25/2024 9:20 AM EST) Anatomical Region Laterality Modality Other us Historical Provider HEALTH MAINTENANCE Final Result * (ABNORMAL) Mammography (11/15/2023 9:16 AM EDT) Anatomical Region Laterality Modality Other us Historical Provider HEALTH MAINTENANCE Final Result documented in this encounter Visit Diagnoses Not on filedocumented in this encounter Additional Health Concerns Assessment Noted Time PHQ-9 Depression Total Score: 0 02/11/20 23 10:42 AM EST documented as of this encounter Care Teams Instrumental Musician Relationship Specialty Start Date End Date Payton Garza MD [address] [place] [address] PCP - General Family Medicine 09/30/16 documented as of this encounter
--- OUTSIDE RECORDS SUMMARY | 2024-11-20 14:42 | XMS_ITS | Encounter Summary ---
Author Organization [employer] Address [address] [place] [address] Care Team Providers Care Air Conditioning Technician Name Role Phone Payton Garza MD Primary Care Provider + Encounter Details Date Type Department Care Team (Late st Contact Info) Description 09/08/2024 Orders Only [facility] [address] [place] [address] ProviderGenesis MD Social History Tobacco Use Types [...] 01/26/2025 11:15 AM EST Office Visit [facility] MEDIC[facility] [address] [place] [phone] Payton Garza MD [address] [place] [address] 03/07/2025 11:00 AM EST Office Visit [facility] OPTOMETRY [address] [place] [address] Juancarlos, Mary, OD [address] [place] [address] documented as of this encounter Procedures Procedure Name Priority Date/Time Associated Diagnosis Comments MAMMOGRAPHY Routine 09/07/2024 8:38 AM EDT documented in this encounter Results * Hm Mammography (09/07/2024 8:38 AM EDT) Anatomical Region Laterality Modality Other Historical Provider HEALTH MAINTENANCE Final Result documented in this encounter Visit Diagnoses Not on filedocumented in this encounter Additional Health Concerns Assessment Noted Time PHQ-9 Depression Total Score: 0 02/11/20 23 10:42 AM EST documented as of this encounter Care Teams Air Conditioning Technician Relationship Specialty Start Date End Date Payton Garza MD [address] [place] [address] PCP - General Family Medicine 09/30/16 documented as of this encounter
--- OUTSIDE RECORDS SUMMARY | 2024-11-20 14:43 | XMS_ITS | Clinical Summary ---
Author Organization [employer] Address [address] [place] [address] [address] [place] [address] Care Team Providers Care Reverse Unit Operator Name Role Phone Payton Garza MD Primary Care Provider + Allergies No known active allergies Medications fluticasone (Flonase) 50 MCG/ACT nasal sprayIndicatio ns:Acute rhinitis spray 1 - 2 spray by intranasal route every day in each nostril as needed 48 g 3 Active hydroquinone 4 % creamIndicatio ns:Melasma APPLY TO AFFECTED AREA EVERY DAY AT BEDTIME 28.35 g 1 4 Active FREESTYLE LITE test strip Use to test blood sugar 2 times daily 100 each 12 4 12/31/19 25 Active Lancets misc Use to test blood sugar 2 times daily 100 each 11 4 Active Alcohol Swabs 70 % pads Use to test blood sugar 2 times daily 100 each 11 4 Active Blood Glucose Monitoring Suppl (FreeStyle Republic Lite) w/Device kit Use to test blood sugar 2 times daily 1 kit 4 Active zolpidem (Ambien) 10 MG tablet Take 10 mg by mouth at bedtime. for sleep 4 Active prazosin (Minipress) 5 MG capsule TAKE 1 CAPSULE BY MOUTH AT BEDTIME FOR DREAMS Active mirtazapine (Remeron) 15 MG tablet TAKE 1 TABLET BY MOUTH AT BEDTIME FOR SLEEP AND MOOD Active lurasidone (Latuda) 20 MG tablet TAKE 1 TABLET BY MOUTH AT BEDTIME FOR PSYCHOSIS 4 Active escitalopram (Lexapro) 20 MG tablet Take 20 mg by mouth in the morning. 4 Active clonazePAM (KlonoPIN) 0.5 MG tablet TAKE 1 TABLET BY MOUTH ONCE A DAY NEEDED FOR SEVERE ANXIETY 4 Active ergocalciferol (Vitamin D2) 1.25 MG (71561 UT) capsuleIndicat ions:Vitamin D deficiency TAKE 1 CAPSULE BY MOUTH ONE TIME PER WEEK 12 capsule 1 5 Active metFORMIN XR (Glucophage-XR ) 750 MG 24 hr tablet Take 2 tablets (1,500 mg) by mouth with evening meal. Do not crush, chew, or split. 180 tablet 5 11/21/19 26 Active metFORMIN XR (Glucophage-XR ) 500 MG 24 hr tablet Take 1 tablet (500 mg) by mouth with breakfast and with evening meal. Do not crush, chew, or split. 180 tablet 4 11/21/19 25 Discontinu ed(Dose adjustment ) Active Problems Problem Noted Date Diagnosed Date Class 1 obesity due to exces s calories with serious comorbidity and body mass index (BMI) of 32.0 to 32.9 in adult 12/31/2023 Assessment & Plan (12/31/2023 10:58 AM EST): Discussed re weight reduction options including exercise, life style modifications, diet and referral to learning disabilities specialist. Recommended to decrease soda and sugary beverage consumption, increase protein intake with meals (at least 1 portion of protein with each meal) to assist with satiety, increase dietary fiber Recommended at least 150 min/week of moderate intensity exercise. Elevated liver enzymes 12/31/2023 Assessment & Plan (12/31/2023 10:58 AM EST): Most likely fatty liver, r/o hepatitis. Order labs. Advised weight reduction, avoid alcohol or drugs, increase exercise, and referred to casework specialist. Pure hypercholesterolemia 12/31/2023 Assessment & Plan (12/31/2023 11:00 AM EST): Recommended moderate amount of exercise and increase consumption of fruit, vegetables, fish and high fiber foods. Should decrease consumption of highly saturated fats or trans fats. Follow up lipids in 6-8 months. Blurred vision, bilateral 12/31/2023 Assessment & Plan (01/02/2024 8:14 PM EST): X 3 days, no change. Most likely related to new onset of DM. VA test is 20/40 bl, will refer to eye clinic for addtl evaluation. Order CT scan to r/o ischemic event 3 days ago. Advised to go to ED if any Sx get worse or developments of any weakness or other neurological deficit. Type 2 diabetes mellitus wit hout complication, without long-term current use of insulin 12/31/2023 Assessment & Plan (02/03/2024 12:14 PM EST): She tolerates medications well, will FU in 2 months. Continue on Metformin 500 mg daily. Counseled re more frequent low calorie/carb meals. Check fgstk x 1 daily Encouraged physical activity as tolerated. FU in 3 months. FU with casework specialist. She was seen at the eye clinic. She declined Influenza, Covid, and PCV immunizations today. Assessment & Plan (01/02/2024 8:16 PM EST): New onset, uncontrolled. Start Metformin ER 500mg/d Counseled re more frequent low calorie/carb meals. Check fgstk 2x daily Encouraged physical activity as tolerated. FU in one week for DM and Glucose medication. Follow up with me in 4 weeks. Acute otitis externa of both ears 12/31/2023 Assessment & Plan (12/31/2023 11:20 AM EST): Use Cortisporin. Encounter for cervical Pap smear with pelvic exa m 05/07/2023 Assessment & Plan (05/07/2023 9:56 AM EDT): Pelvic exam today wnl, will repeat in 3 yrs due to no report of previous PAP FU pap smear results/HPV/STI testing and will call back PRN positive results or FU in 3 months Pt feels safe at home no concern for DV/STDs Counseled regarding STI prevention If today's pap smear/co testing is normal next one will be due in 3 years. Hyperplastic colonic polyp 05/07/2023 Assessment & Plan (05/07/2023 9:55 AM EDT): Results of colonoscopy discussed with pt, next colonoscopy is in 10 yrs Counseled to fu with GI Diverticulosis 05/07/2023 Assessment & Plan (05/07/2023 9:57 AM EDT): Dicussed with pt results of colonoscopy Counseled to avoid constipation and eat foods that contains small seeds S/s of diverticulitis discussed with pt and she should reconsult prn Endocervical polyp 05/07/2023 Assessment & Plan (05/07/2023 3:14 PM EDT): Most likely reason for recent DUB, pt is philipp menopausal Will refer to [facility] for further examination, r/o malignancy Perimenopause 03/11/2023 Assessment & Plan (03/11/2023 10:33 AM EST): We discussed about perimenopausal changes, healthy lifestyle, increase exercise, remain hydrated She's reluctant to start HRT Fu w me in 3 m Pt frederick schedule PAP smear w me Cyst of breast 03/11/2023 Assessment & Plan (11/09/2023 11:07 AM EDT): - breast MRI is scheduled for 11/14, she will f/u with [facility] breast clinic in February - will f/u in 6-8 weeks Assessment & Plan (03/11/2023 2:12 PM EST): Right breast US is BiRADS 3, she's due for breast ultrasound on August 2023. Mammogram on 01/2023 is BiRADS 2. I will refer to comprehensive breast center at [facility] for further FU Spasm of cervical paraspinous muscle 02/10/2023 02/10/2023 Melasma 02/10/2023 Assessment & Plan (03/11/2023 10:46 AM EST): Probably related to perimenopausal changes Prescribe hydroquinone cream at night and counseled her about SPF use and wearing a hat when outdoors Assessment & Plan (02/10/2023 12:44 PM EST): Menopausal changes Counseled re sunscreen use/sunprotection FU prn Declined covid or Influenza Vax today. Iron deficiency anemia due to chronic blood loss 11/09/2017 02/10/2023 Assessment & Plan (11/09/2023 10:59 AM EDT): - resolved, hemoglobin is stable status post-endocervical polyp + colon polyp resection Assessment & Plan (03/11/2023 10:32 AM EST): She does not have any meds at this time and iron levels are on the low side Will address iron therapy due to microcytosis at next visit DUB (dysfunctional uterine bleeding) 11/09/2017 02/10/2023 Assessment & Plan (11/09/2023 11:06 AM EDT): - resolved, pt is perimenopausal, cervical polyp was benign - f/u with [employer] in 3 years or earlier Assessment & Plan (02/10/2023 12:43 PM EST): Amenorrhea x 2m, likely perimenopause. Keep sxs dairy Take ibuprofen prn menorrhagia or re consult prn. Order labs to ro secondary causes, will schedule PAP smear after next visit w me. Vitamin D deficiency 06/04/2017 02/10/2023 Assessment & Plan (03/11/2023 10:31 AM EST): Counseled to do outdoor exercises, start vit D supplementation Lyme disease 06/04/2017 02/10/2023 Arthritis 11/12/2016 02/10/2023 Joint pain 10/27/2016 02/10/2023 Anemia 10/27/2016 02/10/2023 Depressive disorder 06/02/2012 02/10/2023 Resolved Problems Problem Noted Date Diagnosed Date Resolved Date Elevated blood pressure reading 02/10/2023 3 11/20/2024 Assessment & Plan (12/31/2023 10:57 AM EST): BP is fairly normal so far. Advised to continue checking BP QOD. Counseled re low salt diet/increase moderate physical activity. Check home BP BIW and prn CP/STUART/WELLER Non smoking patient. Refer to casework specialist. Follow up BP in one month with me. Assessment & Plan (11/09/2023 11:02 AM EDT): Most likely essential HTN Counseled re low salt diet/increase moderate physical activity. Check home BP BIW and prn CP/STUART/WELLER Non smoking patient. F/u with me in 6 weeks with BP readings and labs Declined influenza IZ today Assessment & Plan (03/11/2023 10:31 AM EST): She has Stage 1 HTN, discussed about options for Tx and she will do lifestyle modifications and will FU in 3 m Counseled re low salt diet/increase moderate physical activity. Check home BP BIW and prn CP/STUART/WELLER Non smoking patient. Assessment & Plan (02/10/2023 12:42 PM EST): ro essential HTN. Counseled re low salt diet/increase moderate physical activity. Check home BP BIW and prn CP/STUART/WELLER Non smoking patient. FU with labs in 3-4w Encounters Date Type Department Care Team Description 11/20/2024 11:30 AM EDT Office Visit [facility] [address] [place] [phone] Payton Garza MD Lipoma of left lower extremity (Primary Dx); Type 2 diabetes mellitus without complication, without long-term current use of insulin (HCC); Elevated liver enzymes 11/20/2024 Travel 09/15/2024 Telephone [facility] [address] [place] [phone] Payton Garza MD Recall Letter (Recall Letter sent 09/15/24) 09/08/2024 Orders Only [facility] [address] [place] [address] ProviderGenesis MD from Last 3 Months Social History Tobacco Use Types Packs/Day Years Used Date Smoking Tobacco: Never Passive Smoke Exposure: Never Smokeless Tobacco: Never Tobacco Cessation:Counseling Given: Not Answered Alcohol Use Standard Drinks/Week Comments Never 0 [...] Orientation Straight 12/15/2021 10 :16 AM EDT Last Filed Vital Signs Vital Sign Reading Time Taken Comments Blood Pressure 132/82 11/20/2024 11:38 AM EDT Pulse 86 11/20/2024 11:38 AM EDT Temperature 36.5 C (97.7 F) 11/20/2024 11:38 AM EDT Respiratory Rate 24 11/20/2024 11:38 AM EDT Oxygen Saturation 99% 02/03/2024 11:52 AM EST Inhaled Oxygen Concentration - - Weight 84.6 kg (186 lb 9.6 oz) 11/20/2024 11:38 AM EDT Height 162.6 cm (5' 4 ) 11/20/2024 11:38 AM EDT Body Mass Index 32.03 11/20/2024 11:38 AM EDT Plan of Treatment Upcoming Encounters Date Type Department Care Team (Late st Contact Info) Description 01/26/2025 11:15 AM EST Office Visit [facility] [address] [place] [address] Payton Garza MD [address] [place] [address] 03/07/2025 11:00 AM EST Office Visit [facility] [address] [place] [address] JuancarlosMary malcolm, OD [address] [place] [address] Health Maintenance Due Date Last Done Comments CT Colonography 1970 FIT DNA/Cologuard 1970 FIT 1970 FOBT 1970 Sigmoidoscopy 1970 Diabetes: Urine Protein Screening 1989 11/20/2024 Pneumococcal Vaccine: 50+ Years (1 of 2 - PCV) 1989 DTaP/Tdap/Td Vaccines (1 - Tdap) 11/06/2004 11/05/2004 Zoster Vaccines (1 of 2) 02/22/2020 COVID-19 Vaccine (1 - season) 2024 Influenza Vaccine (#1) 2024 Lipid Panel 12/15/2024 11/20/2024, 11/17, 02/10/2023, Additional history exists Diagnostic Breast Imaging 03/10/20252024, 02/25/2024, 11/15/2023, Additional history exists Mammogram 03/10/2025 09/07/2024, 02/15, 11/15/2023, Additional history exists Depression Monitoring 05/21/2025 11/20/2024, 025 Diabetes: Hemoglobin A1C 05/21/2025 11/20/2024, 12/16 Alcohol/Substance Use Screening 11/20/2025 11/20/2024 Diabetes: Foot Exam 11/20/2025 11/20/2024, 11/20/2024, 11/20/2024, Additional history exists Disability Screening 11/20/2025 11/20/2024 SDOH Screening 11/20/2025 11/20/2024 Tobacco Screening 11/20/2025 11/20/2024 Eye Exam 01/16/2026 01/17/2024, 12/03/2023, 01/17/2024, Additional history exists Cervical Cancer Screening 05/06/2028 HPV/Cotest 05/06/2028 05/07/2023 Pap Smear 05/06/2028 05/07/2023 Colonoscopy 03/12/2033 03/12/2023 Colorectal Cancer Screening 03/12/2033 RSV Patients and Patients Aged 60 years or older (1 - 1-dose 75+ series) 2045 Hepatitis A Vaccines Aged Out 04/05/2009 No long er eligible based on patient's age to complete this topic Hepatitis B Vaccines Completed 06/25/2014, 03/06/2014, 05/08/2010, Additional history exists HIV Screening Completed 12/31/2023 Hepatitis C Screening Completed 12/31/2023 HIB Vaccines Aged Out No longer eligi ble based on patient's age to complete this topic HPV Vaccines Aged Out No longer eligi ble based on patient's age to complete this topic IPV Vaccines Aged Out No longer eligi ble based on patient's age to complete this topic Meningococcal B Vaccine Aged Out No l onger eligible based on patient's age to complete this topic Meningococcal Vaccine Aged Out No viktoriya gabriel eligible based on patient's age to complete this topic RSV under 20 months Aged Out No longe r eligible based on patient's age to complete this topic Rotavirus Vaccines Aged Out No longer eligible based on patient's age to complete this topic Procedures Procedure Name Priority Date/Time Associated Diagnosis [...] without long-term current use of insulin (HCC) LIPID PANEL WITH REFLEX TO DIRECT LDL Routine 11/20/2024 12:28 PM EDT Type 2 diabetes mellitus without complication, without long-term current use of insulin (HCC) ALBUMIN, RANDOM URINE W/CREATININE Routine 11/20/2024 12:28 PM EDT Type 2 diabetes mellitus without complication, without long-term current use of insulin (HCC) POCT GLYCATED HEMOGLOBIN, TOTAL Routine 11/20/2024 11:41 AM EDT Type 2 diabetes mellitus without complication, without long-term current use of insulin (HCC) POCT GLUCOSE Routine 11/20/2024 11:41 AM EDT Type 2 diabetes mellitus without complication, without long-term current use of insulin (HCC) HM MAMMOGRAPHY Routine 09/07/2024 8:38 AM EDT HEPATITIS PANEL, GENERAL Routine 12/31/2023 11:30 AM EST Elevated liver enzymes HIV 1/2 ANTIGEN/ANTIBODY, FOURTH GENERATION W/RFL Routine 12/31/2023 11:30 AM EST Elevated liver enzymes HPV MRNA E6/E7 REFLEX TO HPV 16, 18/45 Routine 05/07/2023 9:45 AM EDT PAP SMEAR Routine 05/07/2023 9:45 AM EDT HM COLONOSCOPY Routine 03/12/2023 from Last 3 Months or Most Recently Relevant to Health Maintenance Results * Vitamin D, 25-Hydroxy, Total, Immunoassay (11/20/2024 12:28 PM EDT) Vitamin D 25-OH Total 37.7 >30 ng/mL [facility] Comment: Health Based Reference Values*< 20 ng/mL Svzerlpap60-53 ng/mL Insufficient> 30 ng/mL Sufficient*Michelle DUPREE. N [...] ORDERABLES Fin al Result Performing Organization Address City/[facility]/ZIP Co de Phone Number [facility] [address] [place] [address] [phone] * TSH with Reflex to Free T4 (11/20/2024 12:28 PM EDT) TSH reflex Free T4 0.85 0.32 - 4.0 uIU/mL [facility] Blood 11/20/2024 12:2 8 PM EDT 11/20/2024 1:24 PM EDT us Payton Garza MD LAB BLOOD ORDERABLES Fin al Result Performing Organization Address City/[facility]/ZIP Co de Phone Number [facility] [address] [place] [address] [phone] * (ABNORMAL) Lipid Panel with Reflex to Direct LDL (11/20/2024 12:28 PM EDT) Triglycerides 108 <150 mg/dL [facility] Comment:Desirable Triglyceri de: less than 150 mg/dLBorderline High Triglyceride 150-199 mg/dLHigh Triglyceride: 200-499 mg/dLVery High Triglyceride: greater than or equal to 5OO mg/dL Cholesterol 212(H) <200 mg/dL [facility] Comment:Desirable Cholestero l: less than 200 mg/dLBorderline High Cholesterol: 200-239 mg/dLHigh Cholesterol: greater than 239 mg/dL LDL Cholesterol Calculated 149(H) <100 mg/dL [facility] Comment:Desirable LDL: less than 100 mg/dLNear Optimal/Above Optimal LDL: 110- 129 mg/dLBorderline High LDL: 130-159 mg/dLHigh LDL: 160-189 mg/dLVery High LDL: greater than or equal to 190 mg/dL HDL Cholesterol 42 >40 mg/dL [facility] Comment:Desirable HDL: great er than 40 mg/dL Note: This HDL assay may give artificially low results in patients with liver disease. Blood 11/20/2024 12:2 8 PM EDT 11/20/2024 1:24 PM EDT us Payton Garza MD LAB BLOOD ORDERABLES Fin al Result [facility] [address] [place] [phone] * Albumin, Random Urine W/Creatinine (11/20/2024 12:28 PM EDT) Creatinine, Urine 218.02 mg/dL [facility] Microalbumin Urine 14.0 mg/L [facility] Microalbum Creatinine Ratio Ur 6.4 <30 ug/mg cr [facility] Comment:Albumin/Creatinine R atio Reference Ranges: Normal: < 30 ug/mg creatinine Microalbuminuria: 30 - 300 ug/mg creatinineClinical Albuminuria: > 300 ug/mg creatinine Urine (Urine, Random) 11/20/2024 12:28 PM EDT 11/20/2024 1:16 PM EDT us Payton Garza MD LAB URINE ORDERABLES Fin al Result [facility] [address] [place] [phone] [phone] * (ABNORMAL) Comprehensive Metabolic Panel (11/20/2024 12:28 PM EDT) Sodium 142 135 - 145 mmol/L [facility] Potassium 3.8 3.3 - 5.1 mmol/L [facility] Chloride 106 96 - 108 mmol/L [facility] Carbon Dioxide 25 22 - 29 mmol/L [facility] Anion Gap 15 12 - 20 [facility] Urea Nitrogen (BUN) 13 9 - 16 mg/dL [facility] Creatinine, Serum 0.77 0.5 - 1.4 mg/dL [facility] Estimated Glomerular Filt Rate >60 [facility] Comment:Chronic Kidney Disea se: Estimated GFR < 60 mL/min/1.51e9Cditdi Kidney Disease: Estimated GFR < 15 mL/min/1.73m2 Glucose 128(H) 60 - 115 mg/dL [facility] Calcium 9.2 8.4 - 10.2 mg/dL [facility] Bilirubin, Total 0.3 0.0 - 1.0 mg/dL [facility] Aspartate Amino Transferase 42(H) 5 - 31 U/L [facility] Alanine Aminotransferase 48(H) 0 - 31 U/L [facility] Total Protein 7.8 6.5 - 8.0 g/dL [facility] Albumin Level 4.6 3.5 - 5.0 g/dL [facility] Alkaline Phosphatase 71 39 - 117 U/L [facility] Blood Venous blood specimen / Unknown 11/20/2024 12:28 PM EDT 11/20/2024 1:24 PM EDT us Payton Garza MD LAB BLOOD ORDERABLES Fin al Result [facility] [address] [place] [address] [phone] * (ABNORMAL) POCT Hgb A1c (11/20/2024 11:41 AM EDT) Hemoglobin A1C 6.9(A) 4.0 - 5.7 % QC Media Lot # [id number] Lot# Expiration Date , Blood 11/20/2024 11:4 1 AM EDT Payton Garza MD POINT OF CARE TEST ENTER /EDIT ORDERABLES Final Result * POCT Glucose (11/20/2024 11:41 AM EDT) Pathologist [facility] Glucose Blood, POC 130 60 - 200 mg/dL Comment:fasting since last n ight QC Media Lot # [id number] Lot# Expiration Date 3 Blood Capillary blood specimen / Unknown 11/20/2024 11:41 AM EDT Payton Garza MD POINT OF CARE TEST ENTER /EDIT ORDERABLES Final Result * Hm Mammography (09/07/2024 8:38 AM EDT) Anatomical Region Laterality Modality Other Genesis London MD HEALTH MAINTENANCE Final Result * Hepatitis Panel, General (12/31/2023 11:30 AM EST) Hepatitis A IgM Nonreactive Nonreactive [facility] Comment:IgM antibodies to STUART V not detected; does not exclude earlyacute or recovered HAV infection. ~Hepatitis B Surface Antibody REACTIVE Nonreactive [facility] Comment:REACTIVE: > 11.99 mI U/mL Hepatitis B Core Antibody Nonreactive Nonreactive [facility] Hepatitis C Antibody Nonreactive Nonreactive [facility] Comment:Antibodies to HCV no t detected; does not exclude early acuteHCV infection. Hepatitis B Surface Ag Negative Negative [facility] Blood 12/31/2023 11:3 0 AM EST 12/31/2023 12:56 PM EST Payton Garza MD LAB BLOOD ORDERABLES Fin al Result Performing Organization Address [facility]/ZIP Co de Phone Number [facility] [address] [place] [phone] [phone] * HIV-1/2 Antigen and Antibodies, Fourth Generation, with Reflexes (12/31/2023 11:30 AM EST) HIV AB/AG Nonreactive Nonreactive [facility] Comment:HIV-1 p24 Ag and/or HIV-1/HIV-2 Ab not detected.A test result that is nonreactive does not exclude thepossibility of exposure to or infection with HIV-1 and/orHIV-2. Nonreactive results in this assay for individualswith prior exposure to HIV-1 and/or HIV-2 may be due toantigen and antibody levels that are below the limit ofdetection of this assay.The [employer] HIV Ag/Ab Combo assay result andsupplemental assay results should be interpreted inconjunction with the patient's clinical presentation,history and other laboratory results. If the results areinconsistent with clinical evidence, additional testing issuggested to confirm the result. Blood Venous blood specimen / Unknown 12/31/2023 11:30 AM EST 12/31/2023 12:56 PM EST Payton Garza MD LAB BLOOD ORDERABLES Fin al Result Performing Organization Address City/[facility]/ZIP Co de Phone Number [facility] [address] [place] [phone] * HPV mRNA E6/E7 w/Reflex to HPV Genotypes 16, 18/45 (05/07/2023 9:45 AM EDT) HPV nRNA E6/E7 Not Detected Not Detected [facility] Comment:Methodology: Transcr iption-Mediated AmplificationThis assay detects E6/E7 viral messenger RNA (mRNA) from 14high-risk HPV types (16,18,31,33,35,39,45,51,52,56,58,59,66,68).Cervical sources are required for HPV testing.If a vaginal source from a patient who has had atotal hysterectomy with removal of cervix wassubmitted, please contact the testing laboratoryfor alternative testing options.For additional information, please refer [email or web address]/faq/[email or web address](This link if provided for information/educational purposes only.)THIS TEST WAS PERFORMED AT:[employer] [place] [phone] LEZAMA MD HPV mRNA E6/E7 [facility] HPV 16 RNA [facility] HPV 18/45 RNA [facility] 05/07/2023 9:45 AM EDT 05/11/2023 11:50 AM EDT Payton Garza MD LAB CYTOLOGY ORDERABLES Final Result [facility] [address] [place] [address] [phone] * Pap Smear (05/07/2023 9:45 AM EDT) 05/07/2023 9:45 AM EDT 05/11/2023 11:50 AM EDT Narrative [facility] - 05/23/2023 5:48 PM EDT ----- ------- Name: Juli Sifuentes Age/Sex: 53/F : 1970 Unit#: [id number] Attend Dr: Payton Garza MD Re05/07/23 Status: DEP REF Location: [facility] Disch: ----- ------- SPEC : [id number] RECD: 05/11/23-1149 STATUS: MERA IY NUM: [id number] LYSSA: 05/07/[address] [facility] [address]: Payton Garza MD ENTERED: 05/11/23-1257 SP TYPE: Pap Smr OTHR DR: ORDERED: Pap Smear Interpretation Satisfactory for evaluation. Negative for intraepithelial lesion or malignancy. Moderate inflammation. HPV mRNA E6/E7: NOT DETECTED This assay detects E6/E7 viral messenger RNA (mRNA) from 14 high-risk HPV types (16, 18, 31, 33, 35, 39, 45, 51, 52, 56, 58, 59, 66, 68) HPV testing performed by [facility], [place], [place]. See reference laboratory portion of the EMR for entire report. Clinical Information LMP: Unknown date Previous PAP test: More than 5 years ago, Unknown findings Material Received ThinPrep-Cervical ----- ------- Signed (signature on file) Anna Suárez Renee 05/23/23 1748 ----- ------- END OF REPORT Payton Garza MD LAB CYTOLOGY ORDERABLES Final Result Performing Organization Address City/[facility]/ZIP Co de Phone Number [facility] [address] [place] [address] [phone] * Colonoscopy (03/12/2023) Colonoscopy Normal Normal [facility] Payton Garza MD HEALTH MAINTENANCE Final Result Performing Organization Address [facility] Co de Phone Number [facility] [address] [place] [address] [phone] from Last 3 Months or Most Recently Relevant to Health Maintenance Insurance [id number] Care Teams Reverse Unit Operator Relationship Specialty Start Date End Date Payton Garza MD [address] [place] [phone] PCP - General Family Medicine 09/30/16
--- OUTSIDE RECORDS SUMMARY | 2024-11-20 14:43 | XMS_ITS | Encounter Summary ---
Author Organization [employer] Address [address] [facility] 7t [place] [address] Care Team Providers Care Healthcare Management Consultant Name Role Phone Payton Garza MD Primary Care Provider + Reason for Visit * Reason Onset Date Comments Med Refill 02/22/2024 Encounter Details Date Type Department Care Team ([facility] st Contact Info) Description 02/22/2024 Telephone [facility] MEDICINE [address] [place], [place] [phone] Payton Garza MD [address] [place], [place] [phone] Med Refill Social History Tobacco Use Types Packs/Day Years [...] situation today? I have ana rosa gamboa 02/10/[address] you [...] AM EDT documented as of this encounter Miscellaneous Notes * Telephone Encounter - Mel Abdi LPN - 02/22/2024 3:14 PM EST Script was sent to [facility] #[id number] on 02/03/24 90 day supply. * Telephone Encounter - Daniel Vincent - 02/22/2024 3:09 PM EST TC from pt requesting medication refill. Medications needing refill : metFORMIN XR (Glucophage-XR) 500 MG 24 hr tablet To be sent to: [facility]/pharmacy #[id number] - [address] documented in this encounter Plan of Treatment Upcoming Encounters Date Type Department Care Team (Late st Contact Info) Description 01/26/2025 11:15 AM EST Office Visit [facility] MEDICINE [address] [place] [address] Payton Garza MD [address] [place] [address] 03/07/2025 11:00 AM EST Office Visit [facility] OPTOMETRY [address] [place] [address] Mary Bauer, REUBEN [address] [place] [address] documented as of this encounter Visit Diagnoses Not on filedocumented in this encounter Additional Health Concerns Assessment Noted Time PHQ-9 Depression Total Score: 0 02/11/20 23 10:42 AM EST documented as of this encounter Care Teams Healthcare Management Consultant Relationship Specialty Start Date End Date Payton Garza MD [address] [place] [id number] PCP - General Family Medicine 09/30/16 documented as of this encounter
--- OUTSIDE RECORDS SUMMARY | 2024-11-20 14:43 | XMS_ITS | Encounter Summary ---
Author Organization [employer] Address [address] [facility] 7t [place] [address] Care Team Providers Care Wood Die Maker Name Role Phone Payton Garza MD Primary Care Provider + Reason for Visit * Reason Onset Date Comments Appointment Request 03/24/2023 Encounter Details Date Type Department Care Team ([facility] st Contact Info) Description 03/24/2023 Telephone [facility] MEDICINE [address] [place], [place] [phone] Payton Garza MD [address] [place], [place] [phone] Appointment Request Social History Tobacco Use Types Packs/Day Years Used Date Smoking Tobacco: Never Smokeless Tobacco: Never Alcohol Use Standard [...] Patient Health Questionnaire-2 Score 0 02/10/2023 Comments Unknown Sex and Gender Information Value Date Recorded Sex Assigned at Female 12/15/2021 10:16 AM EDT Legal Sex Female 10:16 AM EDT Gender Identity Female 12/15/2021 10:16 AM EDT Sexual Orientation Straight 12/15/2021 10 :16 AM EDT documented as of this encounter Miscellaneous Notes * Telephone Encounter - Lacy Bravocatalino Alva - 03/24/2023 1:52 PM EST Tc from pt requesting a PE Appt with PCP, pt advise that on last visit she was advice she was goingto be book for a PE but never got a call for appt. Please contact pt @ [phone] Palestinian Speaker documented in this encounter Plan of Treatment Upcoming Encounters Date Type Department Care Team (Late st Contact Info) Description 01/26/2025 11:15 AM EST Office Visit [facility] MEDICINE [address] [place] [address] Payton Garza MD [address] [place] [address] 03/07/2025 11:00 AM EST Office Visit [facility] OPTOMETRY [address] [place] [address] Mary Bauer, OD [address] [place] [address] documented as of this encounter Visit Diagnoses Not on filedocumented in this encounter Additional Health Concerns Assessment Noted Time PHQ-9 Depression Total Score: 0 02/11/20 10:42 AM EST documented as of this encounter Care Teams Wood Die Maker Relationship Specialty Start Date End Date Payton Garza MD [address] [place] [phone] PCP - General Family Medicine 09/30/16 documented as of this encounter
--- OUTSIDE RECORDS SUMMARY | 2024-11-20 14:43 | XMS_ITS | Encounter Summary ---
Author Organization [employer] Address [address] [facility] 7t [place] [address] Care Team Providers Care Infection Control Practitioner Name Role Phone Payton Garza MD Primary Care Provider + Reason for Visit * Reason Onset Date Comments Nurse Triage 12/29/2022 Encounter Details Date Type Department Care Team ([facility] st Contact Info) Description 12/29/2022 Telephone [facility] MEDICINE [address] [place], [place] [phone] Payton Garza MD [address] [place], [place] [phone] Nurse Triage Social History Tobacco Use Types Packs/Day Years Used Date Smoking Tobacco: Never Assessed Comments Unknown Sex and Gender Information Value Date Recorded Sex Assigned at Female 12/15/2021 10:16 AM EDT Legal Sex Female 10:16 AM EDT Gender Identity Female 12/15/2021 10:16 AM EDT Sexual Orientation Straight 12/15/2021 10 :16 AM EDT documented as of this encounter Miscellaneous Notes * Telephone Encounter - Haven Becerra RN - 12/29/2022 1:00 PM EST Triage call with [employer] [place] [id number]. Pt reports blurry vision in both eyes which started month ago. Pt reports this is evident with close up and distance vision. Pt reports has had glasses and was seen for vision difficulty before. Glasses have since broken and Pt is not wearing them. Pt is advised to [facility] to be seen. Pt agrees and is requesting a referral if needed. Advised will send this request to PCP and nursing team for follow up and PT agrees. Protocol Used: Information Only Call - No Triage (Adult) Protocol-Based Disposition: Discuss with PCP and Callback by Nurse Today Video visit not offered Positive Triage Question: * Requesting referral to a specialist * All higher-acuity triage questions were negative Care Advice Discussed: * Reasons To Call Back - New symptoms develop - You have more questions - You become worse * Telephone Encounter - Lacy Alva - 12/29/2022 11:49 AM EST Symptom: Vision Loss or Change Outcome: Schedule an urgent appointment (within 1 hour) or talk to a nurse or provider soon Reason: Getting worse The caller accepted this outcome Please contact pt at [phone] Namibian Speaker documented in this encounter Plan of Treatment Upcoming Encounters Date Type Department Care Team (Late st Contact Info) Description 01/26/2025 11:15 AM EST Office Visit [facility] MEDICINE [address] [place] [address] Payton Garza MD [address] [place] [address] 03/07/2025 11:00 AM EST Office Visit [facility] OPTOMETRY [address] [place] [address] Juancarlos, Mary, OD [address] [place] [address] documented as of this encounter Visit Diagnoses Not on filedocumented in this encounter Care Teams Infection Control Practitioner Relationship Specialty Start Date End Date Payton Garza MD [address] [place] [address] PCP - General Family Medicine 09/30/16 documented as of this encounter
--- OUTSIDE RECORDS SUMMARY | 2024-11-20 14:43 | XMS_ITS | Encounter Summary ---
Author Organization [employer] Address [address] [facility] 7t [place] [address] Care Team Providers Care Machine Setter Sheet Metal Name Role Phone Payton Garza MD Primary Care Provider + Reason for Visit * Reason Onset Date Comments Appointment Request 03/11/2023 Encounter Details Date Type Department Care Team ([facility] Contact Info) Description 03/11/2023 Telephone [facility] MEDICINE [address] [place], [place] [phone] Payton Garza MD [address] [place], [place] [phone] Appointment Request Social History Tobacco Use Types [...] encounter Miscellaneous Notes * Telephone Encounter - Tami Mann - 03/11/2023 2:22 PM EST Tc from pt requesting PAP appt documented in this encounter Plan of Treatment Upcoming Encounters Date Type Department Care Team (Late st Contact Info) Description 01/26/2025 11:15 AM EST Office Visit [facility] MEDICINE [address] [place] [address] Payton Garza MD [address] [place] [address] 03/07/2025 11:00 AM EST Office Visit [facility] OPTOMETRY [address] [place] [address] Juancarlos, Mary, OD [address] [place] [address] documented as of this encounter Visit Diagnoses Not on filedocumented in this encounter Additional Health Concerns Assessment Noted Time PHQ-9 Depression Total Score: 0 02/11/20 10:42 AM EST documented as of this encounter Care Teams Machine Setter Sheet Metal Relationship Specialty Start Date End Date Payton Garza MD [address] [place] [address] PCP - General Family Medicine 09/30/16 documented as of this encounter
--- OUTSIDE RECORDS SUMMARY | 2024-11-20 14:43 | XMS_ITS | Encounter Summary ---
Author Organization [employer] Address [address] [address] [address] [place] [address] Care Team Providers Care Certified Respiratory Therapist Name Role Phone Payton Garza MD Primary Care Provider + Reason for Visit * Reason Onset Date Comments Referral 01/29/2023 Encounter Details Date Type Department Care Team (Late Contact Info) Description 01/29/2023 Telephone [facility] MEDICINE [address] [place] [phone] Payton Garza MD [address] [place] [phone] Referral Social History Tobacco Use Types Packs/Day Years Used Date Smoking Tobacco: Never Assessed Comments Unknown Sex and Gender Information Value Date Recorded Sex Assigned at Female 12/15/2021 10:16 AM EDT Legal Sex Female 10:16 AM EDT Gender Identity Female 12/15/2021 10:16 AM EDT Sexual Orientation Straight 12/15/2021 10 :16 AM EDT documented as of this encounter Miscellaneous Notes * Telephone Encounter - Asad Villalobos - 01/29/2023 9:54 AM EST Tc from pt stating they had mammogram at [facility] and was advised to be seen with pcp to get a referral for sonogram. If any questions please contact pt at [phone]. documented in this encounter Plan of Treatment Upcoming Encounters Date Type Department Care Team ([facility] Contact Info) Description 01/26/2025 11:15 AM EST Office Visit [facility] MEDICINE [address] [place] [phone] Payton Garza MD [address] [place] [address] 03/07/2025 11:00 AM EST Office Visit [facility] OPTOMETRY [address] [place], [place] [phone] Mary Bauer, OD [address] [place], [place] [phone] documented as of this encounter Visit Diagnoses Not on filedocumented in this encounter Care Teams Certified Respiratory Therapist Relationship Specialty Start Date End Date Payton Garza MD [address] [place], [place] [phone] PCP - General Family Medicine 09/30/16 documented as of this encounter
== END 2024-11-20 12:23 | disposition home or self-care (01) ==
LOC: HO.HHCL 12:22
PROVIDERS: PCP Internal Medicine; Visit Provider Internal Medicine
DX: E11.9 Type 2 diabetes mellitus without complications (principal)
CPT/HCPCS: 36415; 80053; 80061; 82043; 82306; 82570; 84443